=== PATIENT | female | born 1975 | race Caucasian/White ===

== ENCOUNTER 2017-12-19 20:19 | Emergency (ER) | payer MEDICAID, OTHER ==
[~2017-12-19] VITALS: Ht 157.5 cm; Wt 68.2 kg
[~2017-12-19 20:19] MED LIST: [UNRECOGNIZED DRUG - REMARK] PO
[2017-12-19 20:56] VITALS: BP 115/82
[2017-12-19] MEDS ORDERED: DEXAMETHASONE SOD PHOS 4 MG/ML 5 ML VIAL IM ONE (21:30)
== END 2017-12-19 21:52 | disposition home or self-care (01) ==
LOC: EDUNIT# 20:19 → EMS 20:20
DX: T78.1XXA Other adverse food reactions, not elsewhere classified, initial encounter (principal); G43.909 Migraine, unspecified, not intractable, without status migrainosus; Z88.0 Allergy status to penicillin
CPT/HCPCS: 96372; 99283; J1100